=== PATIENT | female | born 1955 | race Caucasian/White ===

== ENCOUNTER 2017-05-11 10:14 | Outpatient (CLI) | payer BC ==
[2014-06-22 11:06] VITALS: BP 126/68
== END 2017-05-11 10:15 ==
LOC: LABRHC 10:14
PROVIDERS: ATTEND Family Medicine
DX: Z12.4 Encounter for screening for malignant neoplasm of cervix (principal)
CPT/HCPCS: 88148; G0143

== ENCOUNTER 2017-05-17 07:37 | Outpatient (CLI) | payer BC ==
[2014-06-22 11:06] VITALS: BP 126/68
[2017-05-17 08:17] LABS: eGFR (African) > 60; eGFR (Non-African) > 60
== END 2017-05-17 07:40 ==
LOC: LAB 07:37
PROVIDERS: ATTEND Family Medicine
DX: Z00.00 Encounter for general adult medical examination without abnormal findings (principal)
CPT/HCPCS: 36415; 80053; 80061